=== PATIENT | female | born 1965 | race American Indian/Alaskan Native ===

== ENCOUNTER 2017-01-01 14:54 | Inpatient (IN) | payer MEDICARE, MEDICAID ==
--- NOTE | 2017-01-01 15:29 | C.PDOC ---
History Of Present Illness 51 y/o female with Hx of Hyperlipidemia, depression and bronchitis presents to ED for sob and cough for 1 week. Patient was seen by PMD today who advised she come to ED for further evaluation. Patient denies fever, chills, n/v/d or any other complaints at this time. Time Seen by Provider: 01/01/17 15:02 Chief Complaint (Nursing): Shortness Of Breath History Per: Patient History/Exam Limitations: no limitations Onset/Duration Of Symptoms: Days Past Medical History Reviewed: Historical Data, Nursing Documentation, Vital Signs Vital Signs: Last Vital Signs Temp 97.5 F L 01/01/17 15:14 Pulse 69 01/01/17 15:14 Resp 18 01/01/17 15:43 BP 148/85 01/01/17 15:14 Pulse Ox 99 01/01/17 16:36 - Medical History PMH: Bronchitis, Depression, Hypercholesterolemia Surgical History: No Surg Hx Family History: States: No Known Family Hx - Social History Hx Alcohol Use: No Hx Substance Use: No - Immunization History Hx Tetanus Toxoid Vaccination: No Hx Influenza Vaccination: No Hx Pneumococcal Vaccination: No Review Of Systems Except As Marked, All Systems Reviewed And Found Negative. Constitutional: Negative for: Fever, Chills Cardiovascular: Negative for: Chest Pain Respiratory: Positive for: Cough, Shortness of Breath Gastrointestinal: Negative for: Nausea, Vomiting, Diarrhea Skin: Negative for: Rash Physical Exam - Physical Exam Appears: Non-toxic, No Acute Distress Skin: Normal Color, Warm, Dry, No Rash Head: Atraumatic, Normacephalic Eye(s): bilateral: Normal Inspection Oral Mucosa: Moist Neck: Normal ROM, Supple Chest: Symmetrical Cardiovascular: Rhythm Regular, No Murmur Respiratory: No Rales, Rhonchi (Mild L>R), No Wheezing Gastrointestinal/Abdominal: Soft, No Tenderness, No Guarding, No Rebound Neurological/Psych: Oriented x3 ED Course And Treatment - Laboratory Results Result Diagrams: 01/01/17 15:50 01/01/17 15:50 O2 Sat by Pulse Oximetry: 99 (RA) Pulse Ox Interpretation: Normal Medical Decision Making Medical Decision Making: r/o copd, pna, atypical acs, Plan: * ECG * CXR * UA * Blood work * 430: labs cxr neg. pt with persistnet wheezing rhonchi. discussed with dr altamirano. requests admission. stable for floor Disposition - Disposition Disposition: HOSPITALIZED Disposition Time: 16:36 Condition: STABLE Forms: [facility] (Nepali) - Clinical Impression Clinical Impression: COPD (chronic obstructive pulmonary disease) - Scribe Statement The provider has reviewed the documentation as recorded by the Scribe Celine Grissom All medical record entries made by the Scribe were at my direction and personally dictated by me. I have reviewed the chart and agree that the record accurately reflects my personal performance of the history, physical exam, medical decision making, and the department course for this patient. I have also personally directed, reviewed, and agree with the discharge instructions and disposition. Decision To Admit - Pt Status Changed To: Hospital Disposition Of: Inpatient - Admit Certification Admit to Inpatient:: After my assessment, the patient will require hospitalization for at least two midnights. This is because of the severity of symptoms shown, intensity of services needed, and/or the medical risk in this patient being treated as an outpatient. - InPatient: Physician Admission Certification: I certify that this patient requires 2 or more midnights of care for the following reason:: pt will need nebs steriods - . Bed Request Type: Regular Admitting Physician: Solitario Altamirano Patient Diagnosis: COPD (chronic obstructive pulmonary disease)
[2017-01-01] MEDS ORDERED: Albuterol-Ipratrop 3 mg / 0.5 (3 ml) UD INH ONE ×2 (15:30→15:31)
[2017-01-01] MEDS ORDERED: MethylPREDNISolone 40 mg Vial IVP ONE (15:30)
--- NOTE | 2017-01-01 15:42 | RAD ---
HISTORY: chest pain COMPARISON: No prior. TECHNIQUE: Chest PA and lateral FINDINGS: LUNGS: No active pulmonary disease. PLEURA: No significant pleural effusion identified. No pneumothorax apparent. CARDIOVASCULAR: Normal. OSSEOUS STRUCTURES: No significant abnormalities. VISUALIZED UPPER ABDOMEN: Normal. OTHER FINDINGS: None. IMPRESSION: No active disease.
[2017-01-01 15:57] LABS: BASO # 0.1 K/uL (0.0-0.2); BASO % 0.9 % (0.0-2.0); EOS # 0.2 K/uL (0.0-0.7); EOS % 2.3 % (0.0-4.0); HEMATOCRIT 41.2 % (34.0-47.0); LYMPH # 2.7 K/uL (1.0-4.3); LYMPH % 39.5 % (20.0-40.0); MEAN CELL VOLUME 84.4 fL (81.0-99.0); MEAN CORPUSCULAR HEMOGLOBIN 29.1 pg (27.0-31.0); MEAN CORPUSCULAR HGB CONC 34.4 g/dL (33.0-37.0); MEAN PLATELET VOLUME 8.2 fL (7.2-11.7); MONO # 0.5 K/uL (0.0-0.8); NRBC % 0.1 % (0.0-2.0); WHITE BLOOD COUNT 6.7 K/uL (4.8-10.8)
[2017-01-01 15:57] LABS: VENOUS BLOOD GAS BASE EXCESS 3.7 mmol/L (0.0-2.0); VENOUS BLOOD GAS PCO2 43 mmHg (40-60); VENOUS BLOOD PH 7.43 (7.32-7.43)
[2017-01-01 16:03] LABS: CHLORIDE 102 mmol/L (98-107)
[2017-01-01 16:04] LABS: POTASSIUM 3.2 mmol/L (3.6-5.2); SODIUM 141 mmol/L (132-148)
[2017-01-01 16:06] LABS: ALB/GLOB RATIO 1.6 (1.0-2.1); AST/SGOT 49 U/L (14-36); BILIRUBIN,TOTAL 1.5 mg/dL (0.2-1.3); BLOOD UREA NITROGEN 5 mg/dL (7-17); CARBON DIOXIDE 28 mmol/L (22-30); GFR AFRICAN-AMERICAN > 60; TOTAL PROTEIN 7.4 g/dL (6.3-8.3)
[2017-01-01] MEDS ORDERED: Potassium Chloride 20 mEq ER Tab PO STA (16:06)
[2017-01-01 16:07] LABS: ALKALINE PHOSPHATASE 80 U/L (38-126); ALT/SGPT 54 U/L (9-52); CALCIUM 9.1 mg/dl (8.6-10.4); GLUCOSE,RANDOM 106 mg/dL (65-105)
[2017-01-01] MEDS ORDERED: Albuterol-Ipratrop 3 mg / 0.5 (3 ml) UD ONE (16:08)
[2017-01-01 16:10] LABS: INR 1.1; PARTIAL THROMBOPLASTIN TIME 25 SECONDS (21-34)
[2017-01-01] MEDS ORDERED: Potassium Chloride 20 mEq ER Tab PO ONE (16:20)
[2017-01-01 17:29] LABS: RBC URINE < 1 /hpf (0-3); URINE BILIRUBIN NEGATIVE (NEGATIVE); URINE BLOOD NEGATIVE (NEGATIVE); URINE COLOR Yellow (YELLOW); URINE GLUCOSE (UA) NORMAL (Normal); URINE KETONE TRACE mg/dL (NEGATIVE); URINE LEUKOCYTE ESTERASE TRACE Leu/uL (Negative); URINE PROTEIN NEGATIVE (NEGATIVE); URINE UROBILINOGEN NORMAL mg/dL (0.2-1.0); WBC URINE 1 /hpf (0-5)
[2017-01-01] MEDS: raNITIdine HCl 150 mg/10 ml Soln Cup PO SCH (22:20)
[2017-01-02] MEDS: Sucralfate 1 gm/10 ml Oral Susp UD PO SCH ×4 (00:11→17:34)
[2017-01-02] MEDS: Albuterol 0.083% Inhal Sol (2.5 mg/3 mL) UD INH SCH ×5 (04:01→19:05)
--- NOTE | 2017-01-02 04:25 | CP.PCM.HP ---
History of Present Illness - History of Present Illness History of Present Illness: cc: intractable coughing, decreasing Pt had gotten sick around the beginning of November and used her Ventolin inhaler initially, followed by her nebulizer machine when she felt she wasn't improving with the MDI. Pt stabilized for a few weeks, but in the last week, she had to take some cough syrup as her condition slowly deteriorated> Pt was, at this time , starting to lose her appetite and running out of energy to care for herself. The slightest exertion would send her into intractable coughing, much like she exhibited at the office today. While being seen, I noted that Ms Barillas had to stop midway through her sentences to take a breath. With inhalation, she would start coughing---a very dry, cough with sticky phlegm. I noted accesssory respiratory muscle use, both at intercostals and intermittently, at the supraclavicular areas. Because of the apparent clinical worsening, I advised pt to be admitted at the nearest acute care hospital where I can oversee her care. Pt agreed and we called 911 to facilitate her safe transfer to the ER. Present on Admission - Present on Admission Any Indicators Present on Admission: No History of DVT/PE: No History of Uncontrolled Diabetes: No Urinary Catheter: No Decubitus Ulcer Present: No - Notes: Notes:: Hx of DVT/PE: history of thrombophlebitis of L arm Review of Systems - Review of Systems Review of Systems: hx of bipolar disorder from which she self-disenrolled because she didin't think she needed medications anymore - Constitutional Constitutional: Daytime Sleepiness, Excessive Sweating, Lethargy, Snoring, Sleep Apnea, Weight Loss, Weakness Additional comments: pt has very poor sleep hygiene - EENT Eyes: Other Nose/Mouth/Throat: Nose Pain, Sore Throat, Neck Pain - Cardiovascular Cardiovascular: Chest Pain at Rest, Diaphoresis - Respiratory Respiratory: Cough, Dyspnea, Hemoptysis - Gastrointestinal Gastrointestinal: Constipation, Dyspepsia, Heartburn - Genitourinary Genitourinary: Urinary Frequency - Reproductive: Female Reproductive:Female: Amenorrhea - Musculoskeletal Musculoskeletal: Arthralgias, Myalgias, Radiating Pain into Limb - Psychiatric Psychiatric: Anxiety, Behavioral Changes, Change in Appetite, Depression, Difficulty Concentrating, Hallucinations - Endocrine Endocrine: Deepening of Voice Past Patient History - Tetanus Immunizations Tetanus Immunization: Unknown, >10 years Ago - Past Medical History & Family History Past Medical History?: Yes - Past Social History Smoking Status: Never Smoked Alcohol: Occasional Drugs: Denies Home Situation {Lives}: Alone Domestic Violence: Negative - CARDIAC Hx Cardiac Disorders: Yes Hx Circulatory Problems: Yes (thrombophlebitis of L arm) Hx Hypercholesterolemia: Yes - PULMONARY Hx Respiratory Disorders: Yes Hx Bronchitis: Yes - NEUROLOGICAL Hx Neurological Disorder: No - HEENT Hx HEENT Problems: Yes Hx Glaucoma: Yes - RENAL Hx Chronic Kidney Disease: No - ENDOCRINE/METABOLIC Hx Endocrine Disorders: No - HEMATOLOGICAL/ONCOLOGICAL Hx Blood Disorders: No - INTEGUMENTARY Hx Dermatological Problems: No - MUSCULOSKELETAL/RHEUMATOLOGICAL Hx Falls: No - GASTROINTESTINAL Hx Gastrointestinal Disorders: No Hx Nausea: Yes - GENITOURINARY/GYNECOLOGICAL Hx Genitourinary Disorders: No - PSYCHIATRIC Hx Psychophysiologic Disorder: Yes Hx Depression: Yes Hx Substance Use: No - SURGICAL HISTORY Hx Surgeries: No Hx Amputation: Yes Hx Appendectomy: Yes - ANESTHESIA Hx Anesthesia: Yes Hx Anesthesia Reactions: No Hx Malignant Hyperthermia: No Has any member of the family had a problem w/ anesthesia?: No Meds Allergies/Adverse Reactions: Allergies Allergy/AdvReac Type Severity Reaction Status Date / Time No Known Allergies Allergy Unverified 01/01/17 15:19 Results - Vital Signs Recent Vital Signs: Last Vital Signs Temp 97.3 F L 01/01/17 23:21 Pulse 65 01/01/17 23:21 Resp 18 01/01/17 23:21 BP 117/71 01/01/17 23:21 Pulse Ox 97 01/01/17 23:21 - Labs Result Diagrams: 01/01/17 15:50 01/01/17 15:50 Labs: Laboratory Results - last 24 hr 01/01/17 17:21 Urine Color Yellow Urine Clarity Clear Urine pH 7.0 Ur Specific [place] 1.002 L Urine Protein Negative Urine Glucose (UA) Normal Urine Ketones Trace Urine Blood Negative Urine Nitrate Negative Urine Bilirubin Negative Urine Urobilinogen Normal Ur Leukocyte Esterase Trace Urine WBC (Auto) 1 Urine RBC (Auto) < 1 Urine HCG, Qual Negative
[2017-01-02] MEDS ORDERED: Albuterol HFA 90 mcg/actuation (8 g) INH PRN (05:19)
--- NOTE | 2017-01-02 08:17 | CP.PCM.CON ---
History of Present Illness - History of Present Illness History of Present Illness: patient seen/examined. full consult to follow. Patient has history of COPD which can lead to pulmonary hypertension and right ventricular hypertrophy. Recommend echocardiogram to assess LV/RV function. Past Patient History - Tetanus Immunizations Tetanus Immunization: Unknown, >10 years Ago - Past Medical History & Family History Past Medical History?: Yes - Past Social History Smoking Status: Never Smoked Alcohol: Occasional Drugs: Denies Home Situation {Lives}: Alone Domestic Violence: Negative - CARDIAC Hx Cardiac Disorders: Yes Hx Circulatory Problems: Yes (thrombophlebitis of L arm) Hx Hypercholesterolemia: Yes - PULMONARY Hx Respiratory Disorders: Yes Hx Bronchitis: Yes - NEUROLOGICAL Hx Neurological Disorder: No - HEENT Hx HEENT Problems: Yes Hx Glaucoma: Yes - RENAL Hx Chronic Kidney Disease: No - ENDOCRINE/METABOLIC Hx Endocrine Disorders: No - HEMATOLOGICAL/ONCOLOGICAL Hx Blood Disorders: No - INTEGUMENTARY Hx Dermatological Problems: No - MUSCULOSKELETAL/RHEUMATOLOGICAL Hx Falls: No - GASTROINTESTINAL Hx Gastrointestinal Disorders: No Hx Nausea: Yes - GENITOURINARY/GYNECOLOGICAL Hx Genitourinary Disorders: No - PSYCHIATRIC Hx Psychophysiologic Disorder: Yes Hx Depression: Yes Hx Substance Use: No - SURGICAL HISTORY Hx Surgeries: No Hx Amputation: Yes Hx Appendectomy: Yes - ANESTHESIA Hx Anesthesia: Yes Hx Anesthesia Reactions: No Hx Malignant Hyperthermia: No Has any member of the family had a problem w/ anesthesia?: No Meds Allergies/Adverse Reactions: Allergies Allergy/AdvReac Type Severity Reaction Status Date / Time No Known Allergies Allergy Unverified 01/01/17 15:19 - Medications Medications: Current Medications Albuterol (Ventolin Hfa 90 Mcg/Actuation (8 G)) 2 puff INH Q4 PRN PRN Reason: Wheezing Albuterol Sulfate (Albuterol 0.083% Inhal [place] (2.5 Mg/3 Ml) Ud) 2.5 mg INH RQ6 [facility] Last Admin: 01/02/17 06:27 Dose: 2.5 mg Budesonide (Pulmicort Respules) 0.5 mg INH RQ12 [facility] Ezetimibe (Zetia) 10 mg PO HS [facility] Last Admin: 01/01/17 22:20 Dose: 10 mg Pneumococcal Polyvalent Vaccine (Pneumovax 23 Vaccine) 0.5 ml IM .ONCE ONE Stop: 01/03/17 10:01 Ranitidine HCl (Zantac Soln 5ml) 150 mg PO Q12 [facility] Last Admin: 01/01/17 22:20 Dose: 150 mg Sucralfate (Carafate Oral Susp) 1 gm PO Q6 [facility] Last Admin: 01/02/17 06:14 Dose: 1 gm Results - Vital Signs Recent Vital Signs: Last Vital Signs Temp 97.8 F 01/02/17 07:52 Pulse 64 01/02/17 07:52 Resp 20 01/02/17 07:52 BP 126/79 01/02/17 07:52 Pulse Ox 100 01/02/17 07:52 - Labs Result Diagrams: 01/01/17 15:50 01/01/17 15:50 Labs: Laboratory Results - last 24 hr 01/01/17 01/02/17 17:21 07:19 Troponin I < 0.0120 Urine Color Yellow Urine Clarity Clear Urine pH 7.0 Ur Specific [place] 1.002 L Urine Protein Negative Urine Glucose (UA) Normal Urine Ketones Trace Urine Blood Negative Urine Nitrate Negative Urine Bilirubin Negative Urine Urobilinogen Normal Ur Leukocyte Esterase Trace Urine WBC (Auto) 1 Urine RBC (Auto) < 1 Urine HCG, Qual Negative
--- NOTE | 2017-01-02 08:18 | CP.PCM.CON ---
History of Present Illness - History of Present Illness History of Present Illness: I was asked to evalaute patietn by Dr Linares. Patient is a 51 year old female with ahistory of asthma, HTN who presents with cough and dyspnea. Symptoms have been present for the last few days. She describes progressive cough productive of yellowish sputum and wheezing. She had an abnormal EKG. She presents to [facility]. The patient denies chest pain or further cardiac history. Review of Systems - Constitutional Constitutional: absent: As Per HPI, Anorexia, Chills, Daytime Sleepiness, Excessive Sweating, Fatigue, Fever, Frequent Falls, Headache, Increased Appetite , Lethargy, Malaise, Night Sweats, Snoring, Sleep Apnea, Weight Gain, Weight Loss, Weakness, Other - EENT Eyes: absent: As Per HPI, Blind Spots, Blurred Vision, Change in Vision, Decreased Night Vision, Diplopia, Discharge, Dry Eye, Exophthalmos, Floaters, Irritation, Itchy Eyes, Loss of Peripheral Vision, Pain, Photophobia, Requires Corrective Lenses, Sees Flashes, Spots in Vision, Tunnel Vision, Other Visual Disturbances, Loss of Vision, Other Ears: absent: As Per HPI, Decreased Hearing, Ear Discharge, Ear Pain, Tinnitus, Abnormal Hearing, Disequilibrium, Dizziness, Other Nose/Mouth/Throat: absent: As Per HPI, Epistaxis, Nasal Congestion, Nasal Discharge, Nasal Obstruction, Nasal Trauma, Nose Pain, Post Nasal Drip, Sinus Pain, Sinus Pressure, Bleeding Gums, Change in Voice, Dental Pain, Dry Mouth, Dysphagia, Halitosis, Hoarsness, Lip Swelling, Mouth Lesions, Mouth Pain, Odynophagia, Sore Throat, Throat Swelling, Tongue Swelling, Facial Pain, Neck Pain, Neck Mass, Other - Breasts Breasts: absent: As Per HPI, Change in Shape, Mass, Pain, Nipple Discharge, Nipple Inversion, Skin Changes, Swelling, Other - Cardiovascular Cardiovascular: Dyspnea - Respiratory Respiratory: Cough, Dyspnea - Gastrointestinal Gastrointestinal: absent: As Per HPI, Abdominal Pain, Belching, Bloating, Change in Bowel Habits, Change in Stool Character, Coffee Ground Emesis, Constipation, Cramping, Diarrhea, Dyspepsia, Dysphagia, Early Satiety, Excessive Flatus, Fecal Incontinence, Heartburn, Hematemesis, Hematochezia, Loose Stools, Melena, Nausea, Odynophagia, Temesmus, Vomiting, Other - Genitourinary Genitourinary: absent: As Per HPI, Change in Urinary Stream, Difficulty Urinating, Dysuria, Flank Pain, Hematuria, Pyuria, Nocturia, Urinary Incontinence, Urinary Frequency, Urinary Hesitance, Urinary Urgency, Voiding Freq/Small Amts, Freq UTI, Hx Renal/Bladder Calculi, Hx /Renal Surgery, Bladder Distension, Other - Musculoskeletal Musculoskeletal: absent: As Per HPI, Abnormal Gait, Arthralgias, Atrophy, Back Pain, Deformity, Joint Swelling, Limited Range of Motion, Loss of Height, Muscle Cramps, Muscle Weakness, Myalgias, Neck Pain, Numbness, Radiating Pain into Limb, Stiffness, Tingling, Other - Integumentary Integumentary: absent: As Per HPI, Acne, Alopecia, Bleeding Lesions, Change in Hair, Change in Nails, Change in Pigmentation, Changing Lesions, Dry Skin, Erythema, Furuncle, Hirsutism, Lesions, New Lesions, Non-Healing Lesions, Photosensitivity, Pruritus, Rash, Skin Pain, Skin Ulcer, Sores, Striae, Swelling , Unusual Bruising, Wounds, Jaundice, Other - Psychiatric Psychiatric: absent: As Per HPI, Abnormal Sleep Pattern, Anhedonia, Anxiety, Auditory Hallucinations, Behavioral Changes, Change in Appetite, Change in Libido, Confusion, Depression, Difficulty Concentrating, Hallucinations, Homicidal Ideation, Hopelessness, Irritability, Memory Loss, Mood Swings, Panic Attacks, Paranoia, Suicidal Ideation, Visual Hallucinations, Tactile Hallucinations, Other - Endocrine Endocrine: absent: As Per HPI, Change in Body Appearance, Change in Libido, Cold Intolorance, Deepening of Voice, Excessive Sweating, Fatigue, Flushing, Heat Intolorance, Increase in Ring/Shoe/Hat Size, Palpitations, Polydipsia, Polyphagia, Polyuria, Other Past Patient History - Tetanus Immunizations Tetanus Immunization: Unknown, >10 years Ago - Past Medical History & Family History Past Medical History?: Yes - Past Social History Smoking Status: Never Smoked Alcohol: Occasional Drugs: Denies Home Situation {Lives}: Alone Domestic Violence: Negative - CARDIAC Hx Cardiac Disorders: Yes Hx Circulatory Problems: Yes (thrombophlebitis of L arm) Hx Hypercholesterolemia: Yes - PULMONARY Hx Respiratory Disorders: Yes Hx Bronchitis: Yes - NEUROLOGICAL Hx Neurological Disorder: No - HEENT Hx HEENT Problems: Yes Hx Glaucoma: Yes - RENAL Hx Chronic Kidney Disease: No - ENDOCRINE/METABOLIC Hx Endocrine Disorders: No - HEMATOLOGICAL/ONCOLOGICAL Hx Blood Disorders: No - INTEGUMENTARY Hx Dermatological Problems: No - MUSCULOSKELETAL/RHEUMATOLOGICAL Hx Falls: No - GASTROINTESTINAL Hx Gastrointestinal Disorders: No Hx Nausea: Yes - GENITOURINARY/GYNECOLOGICAL Hx Genitourinary Disorders: No - PSYCHIATRIC Hx Psychophysiologic Disorder: Yes Hx Depression: Yes Hx Substance Use: No - SURGICAL HISTORY Hx Surgeries: No Hx Amputation: Yes Hx Appendectomy: Yes - ANESTHESIA Hx Anesthesia: Yes Hx Anesthesia Reactions: No Hx Malignant Hyperthermia: No Has any member of the family had a problem w/ anesthesia?: No Meds Allergies/Adverse Reactions: Allergies Allergy/AdvReac Type Severity Reaction Status Date / Time No Known Allergies Allergy Unverified 01/01/17 15:19 - Medications Medications: Current Medications Albuterol (Ventolin Hfa 90 Mcg/Actuation (8 G)) 2 puff INH Q4 PRN PRN Reason: Wheezing Albuterol Sulfate (Albuterol 0.083% Inhal [place] (2.5 Mg/3 Ml) Ud) 2.5 mg INH RQ6 [facility] Last Admin: 01/02/17 06:27 Dose: 2.5 mg Budesonide (Pulmicort Respules) 0.5 mg INH RQ12 [facility] Ezetimibe (Zetia) 10 mg PO HS [facility] Last Admin: 01/01/17 22:20 Dose: 10 mg Pneumococcal Polyvalent Vaccine (Pneumovax 23 Vaccine) 0.5 ml IM .ONCE ONE Stop: 01/03/17 10:01 Ranitidine HCl (Zantac Soln 5ml) 150 mg PO Q12 [facility] Last Admin: 01/01/17 22:20 Dose: 150 mg Sucralfate (Carafate Oral Susp) 1 gm PO Q6 [facility] Last Admin: 01/02/17 06:14 Dose: 1 gm Physical Exam - Constitutional Appears: Non-toxic - Head Exam Head Exam: NORMAL INSPECTION - Eye Exam Eye Exam: Normal appearance - ENT Exam ENT Exam: Mucous Membranes Moist - Respiratory Exam Respiratory Exam: Decreased Breath Sounds, Wheezes - Cardiovascular Exam Cardiovascular Exam: REGULAR RHYTHM - GI/Abdominal Exam GI & Abdominal Exam: Normal Bowel Sounds - Rectal Exam Rectal Exam: Deferred - Extremities Exam Extremities exam: Negative for: pedal edema - Back Exam Back exam: NORMAL INSPECTION - Psychiatric Exam Psychiatric exam: Normal Affect - Skin Skin Exam: Normal Color Results - Vital Signs Recent Vital Signs: Last Vital Signs Temp 97.8 F 01/02/17 07:52 Pulse 64 01/02/17 07:52 Resp 20 01/02/17 07:52 BP 126/79 01/02/17 07:52 Pulse Ox 100 01/02/17 07:52 - Labs Result Diagrams: 01/03/17 08:55 01/03/17 08:55 Labs: Laboratory Results - last 24 hr 01/01/17 01/02/17 17:21 07:19 Troponin I < 0.0120 Urine Color Yellow Urine Clarity Clear Urine pH 7.0 Ur Specific [place] 1.002 L Urine Protein Negative Urine Glucose (UA) Normal Urine Ketones Trace Urine Blood Negative Urine Nitrate Negative Urine Bilirubin Negative Urine Urobilinogen Normal Ur Leukocyte Esterase Trace Urine WBC (Auto) 1 Urine RBC (Auto) < 1 Urine HCG, Qual Negative - EKG Data EKG Interpreted by: Myself EKG shows normal: Sinus rhythm Assessment & Plan (1) Right ventricular hypertrophy by electrocardiogram Assessment and Plan: will need echocardiogram for further evaluation. Status: Acute (2) Dyspnea Assessment and Plan: may be due to underlying pulmonary process. Status: Acute (3) HTN (hypertension) Assessment and Plan: blood pressure control. Status: Acute (4) COPD (chronic obstructive pulmonary disease) Status: Acute
[2017-01-02] MEDS: Budesonide 0.5 mg/2 ml Inhal Susp UD INH SCH ×2 (08:27→19:05)
[2017-01-02] MEDS: raNITIdine HCl 150 mg/10 ml Soln Cup PO SCH ×2 (11:22→21:50)
--- NOTE | 2017-01-02 13:06 | CARD ---
APPROVED REPORT EKG Measurement Heart [id number] <Conclusion> Sinus bradycardia Incomplete right bundle branch block Right ventricular hypertrophy with repolarization abnormality Abnormal ECG
--- NOTE | 2017-01-02 22:01 | CP.PCM.HP ---
History of Present Illness - History of Present Illness History of Present Illness: Pt is a 51 yo AA female who presented to the office with intractable coughing. Pt had been ill since the beginning of November and obviously is increasingly unable to take care of herself. Pt appeared dazed and slow to respond, and because of this change from baseline, I advised pt to seek help at the nearest hospital. Pt consented and 911 called. Present on Admission - Present on Admission Any Indicators Present on Admission: No History of DVT/PE: No History of Uncontrolled Diabetes: No Urinary Catheter: No Decubitus Ulcer Present: No Review of Systems - Review of Systems Systems not reviewed;Unavailable: Respiratory Distress - Constitutional Constitutional: Anorexia, Chills, Excessive Sweating, Fatigue, Fever - EENT Nose/Mouth/Throat: Post Nasal Drip, Sinus Pain, Sinus Pressure, Change in Voice , Neck Pain - Cardiovascular Cardiovascular: Dyspnea - Respiratory Respiratory: Cough, Dyspnea - Menstruation Menstruation: Post Menopausal - Psychiatric Psychiatric: Anhedonia, Anxiety Past Patient History - Tetanus Immunizations Tetanus Immunization: Unknown, >10 years Ago - Past Medical History & Family History Past Medical History?: Yes - Past Social History Smoking Status: Never Smoked Alcohol: Occasional Drugs: Denies Home Situation {Lives}: Alone Domestic Violence: Negative - CARDIAC Hx Cardiac Disorders: Yes Hx Circulatory Problems: Yes (thrombophlebitis of L arm) Hx Hypercholesterolemia: Yes - PULMONARY Hx Respiratory Disorders: Yes Hx Bronchitis: Yes - NEUROLOGICAL Hx Neurological Disorder: No - HEENT Hx HEENT Problems: Yes Hx Glaucoma: Yes - RENAL Hx Chronic Kidney Disease: No - ENDOCRINE/METABOLIC Hx Endocrine Disorders: No - HEMATOLOGICAL/ONCOLOGICAL Hx Blood Disorders: No - INTEGUMENTARY Hx Dermatological Problems: No - MUSCULOSKELETAL/RHEUMATOLOGICAL Hx Falls: No - GASTROINTESTINAL Hx Gastrointestinal Disorders: Yes Hx Gastritis: Yes Hx Nausea: Yes - GENITOURINARY/GYNECOLOGICAL Hx Genitourinary Disorders: No - PSYCHIATRIC Hx Psychophysiologic Disorder: Yes Hx Anxiety: Yes Hx Depression: Yes Hx Psychosis: Yes Hx Substance Use: No Other/Comment: bipolar disorder; very resistant to anything new, even if it's for her benefit and she sees the benefit she will derive from the change - SURGICAL HISTORY Hx Surgeries: No Hx Amputation: No Hx Appendectomy: Yes - ANESTHESIA Hx Anesthesia: Yes Hx Anesthesia Reactions: No Hx Malignant Hyperthermia: No Has any member of the family had a problem w/ anesthesia?: No Meds Home Medications: Home Medication List Medication Instructions Recorded Confirmed Type Albuterol 0.083% [Albuterol 0.083% 2.5 mg INH RQ6 01/04/17 Rx Inhal Belén (2.5 mg/3 ml) UD] Budesonide [Pulmicort Respules] 0.5 mg INH RQ12 01/04/17 Rx Allergies/Adverse Reactions: Allergies Allergy/AdvReac Type Severity Reaction Status Date / Time No Known Allergies Allergy Unverified 01/01/17 15:19 Physical Exam - Constitutional Appears: In Acute Distress - Head Exam Head Exam: NORMAL INSPECTION, NORMOCEPHALIC - Eye Exam Eye Exam: EOMI (conjunctivae rheumy) Pupil Exam: NORMAL ACCOMODATION - ENT Exam Additional comments: memranes slightly dry - Neck Exam Neck exam: Positive for: Normal Inspection Additional comments: no LAD - Respiratory Exam Respiratory Exam: Decreased Breath Sounds, Respiratory Distress - Cardiovascular Exam Cardiovascular Exam: RRR - GI/Abdominal Exam GI & Abdominal Exam: Hyperactive Bowel Sounds, Soft - Rectal Exam Rectal Exam: Deferred - Extremities Exam Extremities exam: Positive for: normal inspection - Back Exam Back exam: NORMAL INSPECTION - Psychiatric Exam Psychiatric exam: Anxious, Flat Affect, Normal Affect, Normal Mood - Skin Skin Exam: Dry, Intact, Normal Color, Warm Results - Vital Signs Recent Vital Signs: Last Vital Signs Temp 98.4 F 01/02/17 16:00 Pulse 71 01/02/17 16:00 Resp 20 01/02/17 16:00 BP 134/89 01/02/17 16:00 Pulse Ox 100 01/02/17 16:00 - Labs Result Diagrams: 01/03/17 08:55 01/03/17 08:55 Labs: Laboratory Results - last 24 hr 01/02/17 07:19 Troponin I < 0.0120 - EKG Data EKG Interpreted by: Myself Rate: Normal - EKG Data When Compared to Previous EKG: No Significant Change Assessment & Plan (1) COPD (chronic obstructive pulmonary disease) Assessment and Plan: acute on chronic. Pt refuses to use inhaled steroid and only uses the beta- agonist inhaler bec it gives her iimmediate relief. Putsout alll sorts of excuses whey she doesn't tke to use it. Status: Acute (2) Dyspnea Assessment and Plan: more pronounced after a couhing episode Status: Acute (3) Right ventricular hypertrophy by electrocardiogram Assessment and Plan: no evidence of SCIENTIFIC PHOTOGRAPHER Status: Acute (4) Post-nasal drip Assessment and Plan: voice sounds nasally and with tickle at throat Status: Acute Decision To Admit - Pt Status Changed To: Hospital Disposition Of: Inpatient - Admit Certification Admit to Inpatient:: After my assessment, the patient will require hospitalization for at least two midnights. This is because of the severity of symptoms shown, intensity of services needed, and/or the medical risk in this patient being treated as an outpatient. - InPatient: Physician Admission Certification:: Pt has a mental condition, aside from living alone at home, that makes it unsafe for her to go home with this illness. Pt does not have very good coping mechanisms, and may fall through the cracks. Must admit to allow pt to recover, and hopelfully be able to take care of herself again. - . Bed Request Type: Regular
[2017-01-02] MEDS: Promethazine/Cod 6.25mg-10mg/5ml Syr UD PO PRN (22:20)
[2017-01-02] MEDS: MethylPREDNISolone 40 mg Vial IV SCH (22:20)
[2017-01-03] MEDS: Sucralfate 1 gm/10 ml Oral Susp UD PO SCH ×4 (00:30→18:25)
[2017-01-03] MEDS: Albuterol 0.083% Inhal Sol (2.5 mg/3 mL) UD INH SCH ×4 (01:40→19:32)
[2017-01-03] MEDS: Budesonide 0.5 mg/2 ml Inhal Susp UD INH SCH ×2 (07:21→19:32)
[2017-01-03 07:50] VITALS: RESP 20
[2017-01-03 09:11] LABS: BASO % 0.2 % (0.0-2.0); HEMATOCRIT 40.7 % (34.0-47.0); LYMPH % 8.3 % (20.0-40.0); MEAN CELL VOLUME 87.1 fL (81.0-99.0); MEAN CORPUSCULAR HEMOGLOBIN 29.6 pg (27.0-31.0); MEAN PLATELET VOLUME 8.3 fL (7.2-11.7); MONO # 0.4 K/uL (0.0-0.8); MONO % 3.2 % (0.0-10.0); PLATELET COUNT 241 K/uL (130-400); RED CELL DISTRIBUTION WIDTH 14.2 % (11.5-14.5); WHITE BLOOD COUNT 12.4 K/uL (4.8-10.8)
[2017-01-03 09:13] LABS: CHLORIDE 102 mmol/L (98-107)
[2017-01-03 09:15] LABS: POTASSIUM 4.1 mmol/L (3.6-5.2); SODIUM 140 mmol/L (132-148)
[2017-01-03 09:17] LABS: ALB/GLOB RATIO 1.5 (1.0-2.1); ALKALINE PHOSPHATASE 64 U/L (38-126); AST/SGOT 40 U/L (14-36); BILIRUBIN,DIRECT 0.3 mg/dL (0.0-0.4); BLOOD UREA NITROGEN 8 mg/dL (7-17); CARBON DIOXIDE 25 mmol/L (22-30); GFR AFRICAN-AMERICAN > 60; TOTAL PROTEIN 7.3 g/dL (6.3-8.3)
[2017-01-03 09:18] LABS: ALT/SGPT 45 U/L (9-52); CALCIUM 9.3 mg/dl (8.6-10.4); GLUCOSE,RANDOM 175 mg/dL (65-105)
[2017-01-03] MEDS ORDERED: Pneumococcal 23-Valent Vaccine IM ONE (10:00)
[2017-01-03] MEDS: MethylPREDNISolone 40 mg Vial IV SCH ×2 (10:33→22:14)
[2017-01-03] MEDS: Promethazine/Cod 6.25mg-10mg/5ml Syr UD PO PRN (10:34)
[2017-01-03] MEDS: raNITIdine HCl 150 mg/10 ml Soln Cup PO SCH ×2 (10:34→22:16)
[2017-01-03 10:35] LABS: NEUTROPHIL 87 % (50-75); TOTAL CELLS COUNTED 100
--- NOTE | 2017-01-03 13:41 | CARD ---
APPROVED REPORT EKG Measurement Heart [id number] <Conclusion> Normal sinus rhythm Incomplete right bundle branch block Possible Right ventricular hypertrophy Abnormal ECG
--- NOTE | 2017-01-03 15:34 | CARD ---
APPROVED REPORT EXAM: Two-dimensional and M-mode echocardiogram with Doppler and color Doppler. INDICATION Dyspnea COPD M-Mode DIMENSIONS RVDd1.30 (2.1-3.2cm)Left Atrium (MM)2.13 (2.5-4.0cm) IVSd0.75 (0.7-1.1cm)Aortic Root2.55 (2.2-3.7cm) LVDd3.59 (4.0-5.6cm)Aortic Cusp Exc.1.90 (1.5-2.0cm) PWd0.73 (0.7-1.1cm)FS (%) 47 % LVDs1.90 (2.0-3.8cm)LVEF (%)79 (>50%) Mitral Valve MV E Aclnalle91.3cm/sMV A Xckqjdrb16.5cm/sE/A ratio1.3 TDI E/Lateral E'0.0E/Medial E'0.0 Tricuspid Valve TR Peak Sfjpfzlq143pa/sTR Peak Gr.[id number] <Conclusion> normal size la,lv & ra rv. normal lv wall motion,thickness,systolic & diastolic function with lvef of 55-60%. normal aortic,mitral,tv & pv. mild tr,pi & trace mr. normal size aortic root. no pericardial effusion.
--- NOTE | 2017-01-03 21:57 | CP.PCM.PN ---
Subjective - Date & Time of Evaluation Date of Evaluation: 01/03/17 Time of Evaluation: 21:55 - Subjective Subjective: Pt seen and examined at bedside, initially sleeping well, and a little groggy when awakened. Then pt woke up and was able to carry on a conversation. Pt not coughing during the whole interview. PT recommendationfor home PT. Pt not a candidate for SNF bec pt is independent on all her ADLs. Objective - Vital Signs/Intake and Output Vital Signs (last 24 hours): Temp Pulse Resp BP Pulse Ox 98 F 60 20 109/69 95 01/03/17 16:00 01/03/17 17:19 01/03/17 16:00 01/03/17 17:19 01/03/17 17:19 Intake and Output: 01/03/17 01/04/17 18:59 06:59 Intake Total 500 Balance 500 - Medications Medications: Current Medications Albuterol (Ventolin Hfa 90 Mcg/Actuation (8 G)) 2 puff INH Q4 PRN PRN Reason: Wheezing Albuterol Sulfate (Albuterol 0.083% Inhal Belén (2.5 Mg/3 Ml) Ud) 2.5 mg INH RQ6 SPIKE Last Admin: 01/03/17 19:32 Dose: 2.5 mg Budesonide (Pulmicort Respules) 0.5 mg INH RQ12 SPIKE Last Admin: 01/03/17 19:32 Dose: 0.5 mg Ezetimibe (Zetia) 10 mg PO HS [facility] Last Admin: 01/02/17 21:50 Dose: 10 mg Loratadine (Claritin) 10 mg PO DAILY SPIKE Last Admin: 01/03/17 10:34 Dose: 10 mg Methylprednisolone (Solu-Medrol) 40 mg IV Q12 SPIKE Last Admin: 01/03/17 10:33 Dose: 40 mg Montelukast Sodium (Singulair) 10 mg PO HS [facility] Last Admin: 01/02/17 22:20 Dose: 10 mg Promethazine HCl/Codeine (Phenergan/Codeine Oral Syrup) 5 ml PO Q4 PRN PRN Reason: prevent oversedation Last Admin: 01/03/17 10:34 Dose: 5 ml Ranitidine HCl (Zantac Soln 5ml) 150 mg PO Q12 SPIKE Last Admin: 09/14/17 10:34 Dose: 150 mg Sucralfate (Carafate Oral Susp) 1 gm PO Q6 SPIKE Last Admin: 01/03/17 18:25 Dose: 1 gm - Labs Labs: 01/03/17 08:55 01/03/17 08:55 PT 12.2 SECONDS (9.7-12.2) 01/01/17 15:50 INR 1.1 01/01/17 15:50 APTT 25 SECONDS (21-34) 01/01/17 15:50 - Constitutional Appears: No Acute Distress - Head Exam Head Exam: NORMAL INSPECTION - Eye Exam Eye Exam: Normal appearance Pupil Exam: NORMAL ACCOMODATION - ENT Exam ENT Exam: Normal Exam - Neck Exam Neck Exam: Normal Inspection - Respiratory Exam Respiratory Exam: Decreased Breath Sounds, Clear to Ausculation Bilateral Additional comments: + cough when face to face with medical person, no cough otherwise for prolonged periods - Cardiovascular Exam Cardiovascular Exam: REGULAR RHYTHM - GI/Abdominal Exam GI & Abdominal Exam: Normal Bowel Sounds - Rectal Exam Rectal Exam: Deferred - Extremities Exam Extremities Exam: Full ROM, Normal Capillary Refill, Normal Inspection - Neurological Exam Neuro motor strength exam: Left Upper Extremity: 4, Right Upper Extremity: 4, Left Lower Extremity: 4, Right Lower Extremity: 4 - Psychiatric Exam Psychiatric exam: Flat Affect, Normal Mood - Skin Skin Exam: Dry, Intact, Normal Color, Warm Assessment and Plan (1) COPD (chronic obstructive pulmonary disease) with acute bronchitis Status: Chronic (2) COPD (chronic obstructive pulmonary disease) Status: Chronic (3) Dyspnea Status: Chronic
[2017-01-03] MEDS ORDERED: Promethazine/Cod 6.25mg-10mg/5ml Syr UD PO PRN (22:00)
[2017-01-04] MEDS: Sucralfate 1 gm/10 ml Oral Susp UD PO SCH ×5 (00:30→17:56)
[2017-01-04] MEDS: Albuterol 0.083% Inhal Sol (2.5 mg/3 mL) UD INH SCH ×3 (01:16→13:06)
[2017-01-04] MEDS: Budesonide 0.5 mg/2 ml Inhal Susp UD INH SCH (08:02)
--- NOTE | 2017-01-04 08:05 | CP.PCM.PN ---
Subjective - Date & Time of Evaluation Date of Evaluation: 01/03/17 Time of Evaluation: 11:30 - Subjective Subjective: patient is coughing but less. Objective - Vital Signs/Intake and Output Vital Signs (last 24 hours): Temp Pulse Resp BP Pulse Ox 97.8 F 69 20 121/67 98 01/04/17 00:00 01/04/17 00:00 01/04/17 00:00 01/04/17 00:00 01/04/17 00:00 Intake and Output: 01/04/17 01/04/17 06:59 18:59 Intake Total 810 Balance 810 - Medications Medications: Current Medications Albuterol (Ventolin Hfa 90 Mcg/Actuation (8 G)) 2 puff INH Q4 PRN PRN Reason: Wheezing Albuterol Sulfate (Albuterol 0.083% Inhal Belén (2.5 Mg/3 Ml) Ud) 2.5 mg INH RQ6 SPIKE Last Admin: 01/04/17 08:02 Dose: 2.5 mg Budesonide (Pulmicort Respules) 0.5 mg INH RQ12 SPIKE Last Admin: 01/04/17 08:02 Dose: 0.5 mg Ezetimibe (Zetia) 10 mg PO HS [facility] Last Admin: 01/03/17 22:16 Dose: 10 mg Loratadine (Claritin) 10 mg PO DAILY SPIKE Last Admin: 01/03/17 10:34 Dose: 10 mg Methylprednisolone (Solu-Medrol) 20 mg IV Q12 SPIKE Last Admin: 01/03/17 22:14 Dose: 20 mg Montelukast Sodium (Singulair) 10 mg PO HS [facility] Last Admin: 01/03/17 22:16 Dose: 10 mg Promethazine HCl/Codeine (Phenergan/Codeine Oral Syrup) 5 ml PO Q6 PRN PRN Reason: Cough Ranitidine HCl (Zantac Soln 5ml) 150 mg PO Q12 SPIKE Last Admin: 01/03/17 22:16 Dose: 150 mg Sucralfate (Carafate Oral Susp) 1 gm PO Q6 SPIKE Last Admin: 01/04/17 07:47 Dose: 1 gm - Labs Labs: 01/03/17 08:55 01/03/17 08:55 PT 12.2 SECONDS (9.7-12.2) 01/01/17 15:50 INR 1.1 01/01/17 15:50 APTT 25 SECONDS (21-34) 01/01/17 15:50 - Constitutional Appears: Non-toxic - Head Exam Head Exam: NORMAL INSPECTION - Eye Exam Eye Exam: Normal appearance - ENT Exam ENT Exam: Mucous Membranes Moist - Neck Exam Neck Exam: Full ROM - Respiratory Exam Respiratory Exam: Wheezes - Cardiovascular Exam Cardiovascular Exam: REGULAR RHYTHM - Rectal Exam Rectal Exam: Deferred - Extremities Exam Extremities Exam: absent: Pedal Edema - Back Exam Back Exam: NORMAL INSPECTION - Neurological Exam Neurological Exam: Alert - Psychiatric Exam Psychiatric exam: Normal Affect - Skin Skin Exam: Normal Color Assessment and Plan (1) Right ventricular hypertrophy by electrocardiogram Assessment & Plan: will obtain echo. Status: Acute (2) Dyspnea Assessment & Plan: likely due to COPD Status: Acute (3) COPD (chronic obstructive pulmonary disease) Assessment & Plan: continue bronchodilator therapy Status: Acute
--- NOTE | 2017-01-04 08:07 | CP.PCM.PN ---
Subjective - Date & Time of Evaluation Date of Evaluation: 01/04/17 Time of Evaluation: 08:00 - Subjective Subjective: patient has cough but it is improved Objective - Vital Signs/Intake and Output Vital Signs (last 24 hours): Temp Pulse Resp BP Pulse Ox 97.8 F 69 20 121/67 98 01/04/17 00:00 01/04/17 00:00 01/04/17 00:00 01/04/17 00:00 01/04/17 00:00 Intake and Output: 01/04/17 01/04/17 06:59 18:59 Intake Total 810 Balance 810 - Medications Medications: Current Medications Albuterol (Ventolin Hfa 90 Mcg/Actuation (8 G)) 2 puff INH Q4 PRN PRN Reason: Wheezing Albuterol Sulfate (Albuterol 0.083% Inhal Belén (2.5 Mg/3 Ml) Ud) 2.5 mg INH RQ6 SPIKE Last Admin: 01/04/17 08:02 Dose: 2.5 mg Budesonide (Pulmicort Respules) 0.5 mg INH RQ12 SPIKE Last Admin: 01/04/17 08:02 Dose: 0.5 mg Ezetimibe (Zetia) 10 mg PO HS [facility] Last Admin: 01/03/17 22:16 Dose: 10 mg Loratadine (Claritin) 10 mg PO DAILY SPIKE Last Admin: 01/03/17 10:34 Dose: 10 mg Methylprednisolone (Solu-Medrol) 20 mg IV Q12 SPIKE Last Admin: 01/03/17 22:14 Dose: 20 mg Montelukast Sodium (Singulair) 10 mg PO HS [facility]KE Last Admin: 01/03/17 22:16 Dose: 10 mg Promethazine HCl/Codeine (Phenergan/Codeine Oral Syrup) 5 ml PO Q6 PRN PRN Reason: Cough Ranitidine HCl (Zantac Soln 5ml) 150 mg PO Q12 SPIKE Last Admin: 01/03/17 22:16 Dose: 150 mg Sucralfate (Carafate Oral Susp) 1 gm PO Q6 SPIKE Last Admin: 01/04/17 07:47 Dose: 1 gm - Labs Labs: 01/03/17 08:55 01/03/17 08:55 PT 12.2 SECONDS (9.7-12.2) 01/01/17 15:50 INR 1.1 01/01/17 15:50 APTT 25 SECONDS (21-34) 01/01/17 15:50 - Constitutional Appears: Non-toxic - Eye Exam Eye Exam: Normal appearance - ENT Exam ENT Exam: Mucous Membranes Moist - Neck Exam Neck Exam: Full ROM - Respiratory Exam Respiratory Exam: NORMAL BREATHING PATTERN - Cardiovascular Exam Cardiovascular Exam: REGULAR RHYTHM - GI/Abdominal Exam GI & Abdominal Exam: Normal Bowel Sounds - Rectal Exam Rectal Exam: Deferred - Extremities Exam Extremities Exam: Full ROM - Back Exam Back Exam: NORMAL INSPECTION - Neurological Exam Neurological Exam: Alert - Psychiatric Exam Psychiatric exam: Normal Affect - Skin Skin Exam: Normal Color Assessment and Plan (1) Right ventricular hypertrophy by electrocardiogram Assessment & Plan: echocardiogram reviewed. normal right ventricular size and function. Status: Acute (2) Dyspnea Assessment & Plan: due to COPD Status: Acute (3) COPD (chronic obstructive pulmonary disease) Status: Acute
[2017-01-04 08:13] VITALS: BP 107/70; PULSE 67; TEMP 97.6; O2SAT 100
[2017-01-04] MEDS: raNITIdine HCl 150 mg/10 ml Soln Cup PO SCH (09:44)
[2017-01-04] MEDS: MethylPREDNISolone 40 mg Vial IV SCH (09:45)
--- NOTE | 2017-01-04 16:01 | CP.PCM.DIS ---
Provider - Provider Date of Admission: 01/01/17 16:29 Attending physician: Solitario Linares MD Primary care physician: Dr. Solitario Linares Consults: Christiano Lennon MD Time Spent in preparation of Discharge (in minutes): 60 Hospital Course - Lab Results Lab Results: Most Recent Lab Values WBC 12.4 K/uL (4.8-10.8) H D 01/03/17 08:55 RBC 4.67 Mil/uL (3.80-5.20) 01/03/17 08:55 Hgb 13.8 g/dL (11.0-16.0) 01/03/17 08:55 Hct 40.7 % (34.0-47.0) 01/03/17 08:55 MCV 87.1 fL (81.0-99.0) D 01/03/17 08:55 MCH 29.6 pg (27.0-31.0) 01/03/17 08:55 MCHC 34.0 g/dL (33.0-37.0) 01/03/17 08:55 RDW 14.2 % (11.5-14.5) 01/03/17 08:55 Plt Count 241 K/uL (130-400) 01/03/17 08:55 MPV 8.3 fL (7.2-11.7) 01/03/17 08:55 Neut % (Auto) 88.3 % (50.0-75.0) H 01/03/17 08:55 Lymph % (Auto) 8.3 % (20.0-40.0) L 01/03/17 08:55 [place] % (Auto) 3.2 % (0.0-10.0) 01/03/17 08:55 Eos % (Auto) 0.0 % (0.0-4.0) 01/03/17 08:55 Baso % (Auto) 0.2 % (0.0-2.0) 01/03/17 08:55 Neut # 10.9 K/uL (1.8-7.0) H 01/03/17 08:55 Lymph # 1.0 K/uL (1.0-4.3) 01/03/17 08:55 [place] # 0.4 K/uL (0.0-0.8) 01/03/17 08:55 Eos # 0.0 K/uL (0.0-0.7) 01/03/17 08:55 Baso # 0.0 K/uL (0.0-0.2) 01/03/17 08:55 Neutrophils % (Manual) 87 % (50-75) H 01/03/17 08:55 Lymphocytes % (Manual) 10 % (20-40) L 01/03/17 08:55 Monocytes % (Manual) 3 % (0-10) 01/03/17 08:55 Platelet Estimate Normal (NORMAL) 01/03/17 08:55 Poikilocytosis (manual Slight 01/03/17 08:55 [place] Cells Slight 01/03/17 08:55 PT 12.2 SECONDS (9.7-12.2) 01/01/17 15:50 INR 1.1 01/01/17 15:50 APTT 25 SECONDS (21-34) 01/01/17 15:50 D-Dimer, Quantitative < 200 ng/mlDDU (0-243) 01/01/17 15:50 pO2 37 mm/Hg (30-55) 01/01/17 15:53 VBG pH 7.43 (7.32-7.43) 01/01/17 15:53 VBG pCO2 43 mmHg (40-60) 01/01/17 15:53 VBG HCO3 27.1 mmol/L 01/01/17 15:53 VBG Total CO2 29.8 mmol/L (22-28) H 01/01/17 15:53 VBG O2 Sat (Calc) 77.8 % (40-65) H 01/01/17 15:53 VBG Base Excess 3.7 mmol/L (0.0-2.0) H 01/01/17 15:53 VBG Potassium 3.1 mmol/L (3.6-5.2) L 01/01/17 15:53 Sodium 142.0 mmol/l (132-148) 01/01/17 15:53 Chloride 106.0 mmol/L (98-107) 01/01/17 15:53 Glucose 120 mg/dl (65-105) H 01/01/17 15:53 Lactate 1.8 mmol/L (0.7-2.1) 01/01/17 15:53 FiO2 21.0 % 01/01/17 15:53 Sodium 140 mmol/L (132-148) 01/03/17 08:55 Potassium 4.1 mmol/L (3.6-5.2) 01/03/17 08:55 Chloride 102 mmol/L (98-107) 01/03/17 08:55 Carbon Dioxide 25 mmol/L (22-30) 01/03/17 08:55 Anion Gap 17 (10-20) 01/03/17 08:55 BUN 8 mg/dL (7-17) 01/03/17 08:55 Creatinine 0.8 MG/DL (0.7-1.2) 01/03/17 08:55 Est GFR ( Amer) > 60 01/03/17 08:55 Est GFR (Non-Af Amer) > 60 01/03/17 08:55 Random Glucose 175 mg/dL (65-105) H 01/03/17 08:55 Calcium 9.3 mg/dl (8.6-10.4) 01/03/17 08:55 Total Bilirubin 1.0 mg/dL (0.2-1.3) 01/03/17 08:55 Direct Bilirubin 0.3 mg/dL (0.0-0.4) 01/03/17 08:55 AST 40 U/L (14-36) H 01/03/17 08:55 ALT 45 U/L (9-52) 01/03/17 08:55 Alkaline Phosphatase 64 U/L (38-126) 01/03/17 08:55 Troponin I < 0.0120 ng/mL (0.00-0.120) 01/02/17 07:19 NT-Pro-B Natriuret Pep 20.0 pg/mL (0-900) 01/01/17 15:50 Total Protein 7.3 g/dL (6.3-8.3) 01/03/17 08:55 Albumin 4.4 g/dL (3.5-5.0) 01/03/17 08:55 Globulin 3.0 gm/dL (2.2-3.9) 01/03/17 08:55 Albumin/Globulin Ratio 1.5 (1.0-2.1) 01/03/17 08:55 Venous Blood Potassium 3.1 mmol/L (3.6-5.2) L 01/01/17 15:53 Urine Color Yellow (YELLOW) 01/01/17 17:21 Urine Clarity Clear (Clear) 01/01/17 17:21 Urine pH 7.0 (5.0-8.0) 01/01/17 17:21 Ur Specific [place] 1.002 (1.003-1.030) L 01/01/17 17:21 Urine Protein Negative mg/dL (NEGATIVE) 01/01/17 17:21 Urine Glucose (UA) Normal mg/dL (Normal) 01/01/17 17:21 Urine Ketones Trace mg/dL (NEGATIVE) 01/01/17 17:21 Urine Blood Negative (NEGATIVE) 01/01/17 17:21 Urine Nitrate Negative (NEGATIVE) 01/01/17 17:21 Urine Bilirubin Negative (NEGATIVE) 01/01/17 17:21 Urine Urobilinogen Normal mg/dL (0.2-1.0) 01/01/17 17:21 Ur Leukocyte Esterase Trace Yusef/uL (Negative) 01/01/17 17:21 Urine WBC (Auto) 1 /hpf (0-5) 01/01/17 17:21 Urine RBC (Auto) < 1 /hpf (0-3) 01/01/17 17:21 Urine HCG, Qual Negative (NEGATIVE) 01/01/17 17:21 Discharge Exam - Head Exam Head Exam: NORMAL INSPECTION - Eye Exam Eye Exam: Normal appearance Pupil Exam: NORMAL ACCOMODATION - ENT Exam ENT Exam: Normal Exam - Neck Exam Neck exam: Normal Inspection - Respiratory Exam Respiratory Exam: Clear to PA & Lateral, NORMAL BREATHING PATTERN Additional comments: + occasional cough, but more upper airway now - Cardiovascular Exam Cardiovascular Exam: REGULAR RHYTHM, RRR - GI/Abdominal Exam GI & Abdominal Exam: Normal Bowel Sounds - Rectal Exam Rectal Exam: Deferred - Extremities Exam Extremities exam: normal inspection - Back Exam Back exam: NORMAL INSPECTION - Neurological Exam Neurological exam: Alert, Normal Gait, Oriented x3 - Psychiatric Exam Psychiatric exam: Flat Affect, Normal Mood - Skin Skin Exam: Dry, Intact, Normal Color, Warm Discharge Plan - Follow Up Plan Condition: STABLE Disposition: HOME/ ROUTINE Patient education suggested?: Yes Additional Instructions: 1. Continue albuterol nebulization at home every 4 hours while awake 2. Continue budesonide neb OR Pulmicort Flexhaler (whichever is covered by insurance) 2 puffs twice a day 3. Continue loratadine 10 mg 1 tablet daily 4. Continue montelukast (Singulair) 1 tab daily at bedtime 5. Continue cough syrup every 6 hours as needed 6. 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
== END 2017-01-04 18:35 | disposition home or self-care (01) | DRG 192 ==
LOC: C.ER 14:54 → C.3T 16:29
PROVIDERS: ADMIT Family Medicine; ATTEND Family Medicine
DX: J44.0 Chronic obstructive pulmonary disease with (acute) lower respiratory infection (principal); I11.9 Hypertensive heart disease without heart failure; J20.9 Acute bronchitis, unspecified; J44.1 Chronic obstructive pulmonary disease with (acute) exacerbation; F31.9 Bipolar disorder, unspecified; E78.00 Pure hypercholesterolemia, unspecified; Z86.72 Personal history of thrombophlebitis